=== PATIENT | male | born 1960 | race Caucasian/White ===

== ENCOUNTER → 2024-06-01 | Outpatient (CLI) | payer OTHER ==
[~2024-06-01] MED LIST: ALBU2.5V5 INH; ALBU90OI61 INH; ANORO ELLIPTA1 EAC1; ASPI81CH PO; ATOR40TA PO; Bactrim Ds Tab1 EACH PO; CLOP75 PO; Crutch1 EACH MISC; DOXY100 PO; Desyrel50 MG PO; EUTHYROX75 MC1; GABA100; LITH300C PO; METO25ER PO; MINOCYCLINE HC100 M2 PO; NITR.4SL SL; NITR.6SL SL; Naprosyn500 MG PO; Neurontin 100100 MG PO; Norco 5-325 Ta1 EACH PO; PANT40 PO; PARO20 PO; PARO25 PO; PAXIL40 M1; PRED20 PO; Permethrin60 GM TP; SULTRISS PO; TRAZ100 PO; VITAMIN D-32000 UNIT PO
[2024-06-01 11:03] LABS: International Normalized Ratio 1.06; Prothrombin Time Results 11.3 Sec (9.7-11.5)
== END ==
LOC: LAB 10:39 → LAB SHORT 10:39
PROVIDERS: Internal Medicine Hematology & Oncology
DX: D49.0 Neoplasm of unspecified behavior of digestive system (principal)
CPT/HCPCS: 85610; 85730

== ENCOUNTER 2024-08-08 19:31 | Inpatient (IN) | payer OTHER ==
[~2024-08-08] VITALS: Ht 170.2 cm; Wt 66.1 kg
[~2024-08-08 19:31] MED LIST changes: +ALBU90OI INH; -ALBU90OI61 INH; -Desyrel50 MG PO; +NS 1,000 ML IV SCH
[2024-08-08 20:15] LABS: Hematocrit 30.4 % (37.0-53.0); Mean Corpuscular HGB 23.4 pg (26.0-34.0); Mean Corpuscular HGB Conc 29.6 g/dL (31.5-36.5); Mean Corpuscular Volume 79 fL (80-100); Mean Platelet Volume 10.3 fL (9.1-12.4); Platelet Count 446 K/mm3 (150-400); RDW Coefficient Variation 18.7 % (11.7-14.2); RDW Standard Deviation 52.3 fL (35.1-46.3); Red Blood Cell Count 3.84 M/mm3 (4.30-5.90); White Blood Cell Count 33.41 K/mm3 (4.00-11.30)
[2024-08-08 20:43] LABS: Albumin, Blood 1.9 g/dL (3.4-5.0); Albumin/Globulin Ratio 0.4 (0.8-1.8); Bilirubin, Total 0.7 mg/dL (0.1-1.0); Bun/Creatinine Ratio 23.2 (12.0-20.0); Calcium, Blood 10.5 mg/dL (8.5-10.1); Creatinine, Blood 0.82 mg/dL (0.60-1.20); Globulin, Blood 5.1 g/dL (2.2-4.0); Potassium, Blood 4.5 mmol/L (3.5-5.5)
[2024-08-08] MEDS ORDERED: NS 1,000 ML IV SCH (21:00)
[2024-08-08 21:13] LABS: BAND PERCENT MAN 3 % (0-8); BASOPHILS PERCENT MAN 0 % (0-2); EOSINOPHILS PERCENT MAN 0 % (0-6); LYMPHOCYTES ABSOLUTE MAN 0.33 K/mm3 (0.84-5.20); LYMPHOCYTES PERCENT MAN 1 % (21-46); MONOCYTES ABSOLUTE MAN 1.67 K/mm3 (0.16-1.47); MONOCYTES PERCENT MAN 5 % (4-13); MYELOCYTE ABSOLUTE MAN 0.33 K/mm3 (0.00-0.00); MYELOCYTE PERCENT MAN 1 % (0-0); NEUTROPHILS ABSOLUTE MAN 31.07 K/mm3 (1.96-9.15); SEG NEUTROPHILS PERCENT MAN 90 % (41-73); TOTAL CELLS COUNTED 100
[2024-08-08 22:30] LABS: Source, Urine Straight Cath
[2024-08-08 22:38] LABS: Bilirubin, Urine Neg (Neg); Blood, Urine Neg (Neg); Glucose Qualitative, Urine Neg (Neg); Ketones, Urine Neg (Neg); Leukocyte Esterase, Urine Neg (Neg); Nitrite, Urine Neg (Neg); Protein, Urine 2+ (Neg); Urobilinogen, Urine 1+ (Normal)
[2024-08-08 22:44] LABS: Appearance, Urine Clear (Clear); Color, Urine Yellow (P-Yellow)
[2024-08-08 22:46] LABS: Amorphous Light (0-Heavy); Bacteria Few /hpf; Granular Casts 0-2 /lpf (0); Red Blood Cells, Urine Not Seen /hpf (0-2); Squamous Epithelial Cells Few /hpf (Few); White Blood Cells, Urine 0-2 /hpf (0-5)
[2024-08-08] MEDS ORDERED: Acetaminophen 650 MG Supp PR PRN (23:10)
[2024-08-08] MEDS ORDERED: Acetaminophen 325 MG TABLET PO PRN (23:10)
[2024-08-09] VITALS (8 sets, daily range): BP systolic 83–101; BP diastolic 60–76
[2024-08-09] MEDS ORDERED: CefTRIAXone Sodium 2,000 MG in NS 100 ML IV SCH (00:37)
[2024-08-09 03:48] LABS: Hematocrit 27.5 % (37.0-53.0); Hemoglobin 8.3 g/dL (13.5-17.5); Mean Corpuscular HGB 23.6 pg (26.0-34.0); Mean Corpuscular HGB Conc 30.2 g/dL (31.5-36.5); Mean Corpuscular Volume 78 fL (80-100); Mean Platelet Volume 10.1 fL (9.1-12.4); Platelet Count 420 K/mm3 (150-400); RDW Coefficient Variation 18.9 % (11.7-14.2); RDW Standard Deviation 52.7 fL (35.1-46.3); Red Blood Cell Count 3.52 M/mm3 (4.30-5.90); White Blood Cell Count 27.74 K/mm3 (4.00-11.30)
--- NOTE | 2024-08-09 03:56 | NUR ---
SHIFT SUMMARY PT ARRIVED TO UNIT A LITTLE AFTER MIDNIGHT. PT COMPLETELY SOILED, SOCKS WERE STUCK TO PTs FEET. FEET WERE COMPLETELY BLACK AND HAD TO SOAK IN WATER AND SCRUB DIRT OFF. SMALL WOUNDS FOUND ON BUTTOCKS, SEE CHART FOR PICTURES. PT ARRIVED ALERT HOWEVER STRUGGLED TO ANSWER QUESTIONS REGARDING TIME AND SITUATION. PTs SPEECH MUMBLED AND HARD TO UNDERSTAND. HOWEVER PT COOPERATIVE. BPs LOW SBP 90s WITH MAP >65. FLUIDS RUNNING @ 125/HR. AFEBRILE. ON TELE NSR. ON RA >97%. PT C/O ABDOMINAL DISCOMFORT HOWEVER NOT IN PAIN. PTs ABDOMEN DISTENDED WITH HYPOACTIVE BOWEL SOUNDS. PT REPORTS HAVING A BM 08/07/24. BLX TAKEN PER PHLEBOTOMY. PT NPO AT THIS TIME FOR PROCEDURES IN AM. IV ABX GIVEN PER EMAR. NO FURTHER QUESTIONS OR CONCERNS AT THIS TIME. CALL CUETO WITHIN REACH WITH BED ALARM SET. WILL CONTINUE WITH PLAN OF CARE.
[2024-08-09 04:00] LABS: International Normalized Ratio 1.19; Prothrombin Time Results 12.6 Sec (9.7-11.5)
[2024-08-09 04:13] LABS: Albumin, Blood 1.7 g/dL (3.4-5.0); Albumin/Globulin Ratio 0.4 (0.8-1.8); Bilirubin, Total 0.6 mg/dL (0.1-1.0); Bun/Creatinine Ratio 22.6 (12.0-20.0); Calcium, Blood 10.1 mg/dL (8.5-10.1); Creatinine, Blood 0.75 mg/dL (0.60-1.20); Globulin, Blood 4.5 g/dL (2.2-4.0); Magnesium, Blood 1.9 mg/dL (1.6-2.4); Percent Saturation 12.5 % (20.0-50.0); Potassium, Blood 4.1 mmol/L (3.5-5.5); Total Protein, Blood 6.2 g/dL (6.4-8.2)
[2024-08-09 04:19] LABS: BAND PERCENT MAN 5 % (0-8); BASOPHILS PERCENT MAN 0 % (0-2); EOSINOPHILS PERCENT MAN 0 % (0-6); LYMPHOCYTES ABSOLUTE MAN 0.83 K/mm3 (0.84-5.20); LYMPHOCYTES PERCENT MAN 3 % (21-46); MONOCYTES ABSOLUTE MAN 0.83 K/mm3 (0.16-1.47); MONOCYTES PERCENT MAN 3 % (4-13); NEUTROPHILS ABSOLUTE MAN 26.07 K/mm3 (1.96-9.15); SEG NEUTROPHILS PERCENT MAN 89 % (41-73); TOTAL CELLS COUNTED 100
[2024-08-09 09:03] LABS: U Amphetamine Screen DETECTED; U Barbituate Screen Not Detected; U Benzodiazapine Screen Not Detected; U Cocaine Screen Not Detected; U Methadone Screen Not Detected; U Methamphetamine Screen DETECTED; U Opiates Screen Not Detected; U Phencyclidine Screen Not Detected
[2024-08-09 09:04] LABS: U Buprenorphine Screen Not Detected; U Cannabinoids Screen DETECTED; U Oxycodone Screen Not Detected
--- NOTE | 2024-08-09 09:22 | NUR ---
am note this rn assumed care at 0700. vital signs stable. tele sinus rhythm/sinus tach 100. patient is alert and oriented to person, place, self, but was not with date/time or event. patient denies pain, chest pain/pressure or shortness of breath. this rn had md koenig assess patient stage 1 pressure sore on bottom and pictures in the chart. see shift assessment for further detials. Md Koenig in room at 0745 this am and this rn was at bedside while rounded. Plan for paracentesis today at 1330 and patient remains npo until after this.
--- NOTE | 2024-08-09 11:06 | NUR ---
low blood sugar this rn called md koenig to notify of blood sugar of 60, orders placed for d50. see orders.
[2024-08-09] MEDS ORDERED: Dextrose 50% 50 ML Syringe IV ONE (12:00)
[2024-08-09] MEDS ORDERED: ZINC OXIDE/PETROLATUM, YELLOW 1 APPLIC/71 GM PASTE TOP PRN (13:35)
--- NOTE | 2024-08-09 14:34 | NUR ---
update wound care done on bottom. mepilex in place on coccyx
--- NOTE | 2024-08-09 14:37 | NUR ---
sDenioDeni phone number [phone]
[2024-08-09] MEDS ORDERED: Albuterol 2.5 MG/3 ML VIAL INH PRN (17:00)
--- NOTE | 2024-08-09 17:04 | NUR ---
shift summary patient vitals remain stable. no acute changes this shift. patient calls out for help and needs reminders to use call light. patient had head ct and chest ct today. plan for biopsy of pancreas tomorrow and to be npo after breakfast. patient life partner in room visiting with patient at this time.
[2024-08-09] MEDS ORDERED: TraZODone HCl 100 MG Tab PO PRN (17:05)
[2024-08-09] MEDS ORDERED: Albuterol HFA200 ACT/6.7 GM INH INH PRN (17:10)
--- NOTE | 2024-08-09 19:17 | NUR ---
ATTEMPTED PALLIATIVE CARE VISIT: ATTEMPTED TO VISIT WITH PT. HE WOULD NOT STAY AWAKE FOR CONVERSATION. PT DID TELL ME HE WAS HAVING LOTS OF PAIN AT HOME BUT HE DID NOT HAVE ANY PRESCRIPTION FOR PAIN MANAGEMENT. WAS UNABLE TO CAPTURE ANY OTHER INFORMATION.
[2024-08-09] MEDS ORDERED: NS 1,000 ML IV ONE (20:30)
[2024-08-10] VITALS (7 sets, daily range): BP systolic 87–109; BP diastolic 58–77
[2024-08-10 04:17] LABS: BASOPHILS ABSOLUTE AUTO 0.03 K/mm3 (0.00-0.23); BASOPHILS PERCENT AUTO 0 % (0-2); EOSINOPHILS ABSOLUTE AUTO 0.05 K/mm3 (0.00-0.68); EOSINOPHILS PERCENT AUTO 0 % (0-6); Hemoglobin 7.4 g/dL (13.5-17.5); IMMATURE GRAN ABSOLUTE AUTO 0.42 K/mm3 (0.00-0.10); IMMATURE GRAN PERCENT AUTO 2 % (0-1); LYMPHOCYTES ABSOLUTE AUTO 0.48 K/mm3 (0.84-5.20); LYMPHOCYTES PERCENT AUTO 2 % (21-46); MONOCYTES ABSOLUTE AUTO 1.47 K/mm3 (0.16-1.47); MONOCYTES PERCENT AUTO 6 % (4-13); Mean Corpuscular HGB 23.3 pg (26.0-34.0); Mean Corpuscular HGB Conc 28.5 g/dL (31.5-36.5); Mean Corpuscular Volume 82 fL (80-100); NEUTROPHILS ABSOLUTE AUTO 24.33 K/mm3 (1.96-9.15); NEUTROPHILS PERCENT AUTO 91 % (41-73); Platelet Count 481 K/mm3 (150-400); RDW Coefficient Variation 18.8 % (11.7-14.2); RDW Standard Deviation 55.8 fL (35.1-46.3); Red Blood Cell Count 3.17 M/mm3 (4.30-5.90); White Blood Cell Count 26.78 K/mm3 (4.00-11.30)
[2024-08-10 04:44] LABS: Albumin, Blood 1.4 g/dL (3.4-5.0); Albumin/Globulin Ratio 0.3 (0.8-1.8); Bilirubin, Total 0.4 mg/dL (0.1-1.0); Bun/Creatinine Ratio 19.9 (12.0-20.0); Calcium, Blood 9.3 mg/dL (8.5-10.1); Creatinine, Blood 0.71 mg/dL (0.60-1.20); Globulin, Blood 4.2 g/dL (2.2-4.0); Potassium, Blood 3.8 mmol/L (3.5-5.5); Total Protein, Blood 5.6 g/dL (6.4-8.2)
--- NOTE | 2024-08-10 05:14 | NUR ---
SHIFT SUMMARY NO ACUTE CHANGES OVERNIGHT. PT CONTINUES TO BE ALTERED HOWEVER COOPERATIVE. PTs BPs CONTINUE TO BE SOFT. SBPs 80s-90s HOWEVER MAP >65. ONE ADDITIONAL LITER ORDERED TO RUN @ 100/HR PER DR. OZUNA. PT HAD NO C/O PAIN OR DISCOMFORT THROUGHOUT NIGHT. URINATING ADEQUATELY WITH URINAL. ON TELE NSR 80s-90s. NPO @ 0800 FOR PROCEDURE. NO FURTHER QUESTIONS OR CONCERNS AT THIS TIME. BED ALARM REMAINS SET WITH CALL CUETO WITHIN REACH. WILL CONTINUE WITH PLAN OF CARE.
[2024-08-10] MEDS ORDERED: Pantoprazole Sodium 40 MG Tab PO SCH (06:00)
[2024-08-10] MEDS ORDERED: PARoxetine HCl 20 MG Tab PO SCH (09:00)
[2024-08-10] MEDS ORDERED: NS 1,000 ML IV SCH (09:00)
[2024-08-10] MEDS ORDERED: Lactobacil 2-S.Thermo-Bifido 1 1 Cap PO SCH (09:00)
[2024-08-10] MEDS ORDERED: Ondansetron 4 MG SoluTab MM PRN (15:25)
--- NOTE | 2024-08-10 17:09 | NUR ---
SUMMARY LIVER/PANC BX COMPLETED TODAY. PT DENIES PAIN IN ABD. ABLE TO EAT A FEW BITES OF PUDDING BEFORE FEELING NAUSEATED. MD NOTIFIED, MEDICATED PER EMAR. PT RESTING WITH EYES CLOSED. PT HAS BEEN IMPULSIVE ATTEMPTING TO GET OUT OF BED UNSAFELY. DOES NOT CALL APPROPRIATELY. PT STATES THAT HE IS LEAVING HOWEVER STAFF HAS BEEN ABLE TO REASSURE PT OF CARE PLAN AND NEED FOR CONTINUED CLOSE OBSERVATION. LIFE PARTNER SURYA UPDATED ON CARE PLAN WELL. PT REFUSED PT/OT. WEAKNESS NOTED. ABLE TO STAND PIVOT TO BEDSIDE COMMODE. WITH 1 ASSIST. IV FLUIDS CONTINUED. ORIENTED X2-3 WITH INTERMITTENT CONFUSION REQUIRE FREQUENT REDIRECTION. MEPILEX ON COCCYX REPLACED AND PT HIPS SUPPORTED WITH PILLOW
--- NOTE | 2024-08-10 17:25 | NUR ---
PALLIATIVE CARE VISIT: ATTEMPTED TO VISIT PT TODAY. HE WAS SLEEPING. PT CONTINUES TO BE CONFUSED PER RN NOTES. ATTEMPTED TO CALL LIFE PARTNER SURYA AT [phone] AND HAD TO LEAVE A MESSAGE REQUESTING RETURN CALL.
[2024-08-11 03:16] VITALS: BP 98/69
--- NOTE | 2024-08-11 04:12 | NUR ---
MD NOTIFIED OF HGB LEVEL, LAST CHECKED 24 HRS AGO, TRENDING DOWN SINCE ADMISSION. MD OKAYED ORDER FOR REPEAT HGB/LAB VALUES. NO NEW EMAR ORDERS AT THIS TIME.
[2024-08-11 04:26] LABS: BASOPHILS ABSOLUTE AUTO 0.04 K/mm3 (0.00-0.23); BASOPHILS PERCENT AUTO 0 % (0-2); EOSINOPHILS ABSOLUTE AUTO 0.02 K/mm3 (0.00-0.68); EOSINOPHILS PERCENT AUTO 0 % (0-6); Hematocrit 27.2 % (37.0-53.0); Hemoglobin 8.1 g/dL (13.5-17.5); IMMATURE GRAN ABSOLUTE AUTO 0.39 K/mm3 (0.00-0.10); IMMATURE GRAN PERCENT AUTO 2 % (0-1); LYMPHOCYTES ABSOLUTE AUTO 0.37 K/mm3 (0.84-5.20); LYMPHOCYTES PERCENT AUTO 1 % (21-46); MONOCYTES ABSOLUTE AUTO 1.17 K/mm3 (0.16-1.47); MONOCYTES PERCENT AUTO 4 % (4-13); Mean Corpuscular HGB 23.5 pg (26.0-34.0); Mean Corpuscular HGB Conc 29.8 g/dL (31.5-36.5); Mean Corpuscular Volume 79 fL (80-100); Mean Platelet Volume 9.9 fL (9.1-12.4); NEUTROPHILS ABSOLUTE AUTO 24.61 K/mm3 (1.96-9.15); NEUTROPHILS PERCENT AUTO 92 % (41-73); Platelet Count 473 K/mm3 (150-400); RDW Coefficient Variation 19.2 % (11.7-14.2); RDW Standard Deviation 53.5 fL (35.1-46.3); Red Blood Cell Count 3.44 M/mm3 (4.30-5.90)
--- NOTE | 2024-08-11 05:28 | NUR ---
Shift Summary: AOx3, pt is responsive to his care. No acute changes throughout shift. Pt impulsive, bed alarm on for safety. Needs assistance when urinating, uses the urinal, one person assist. Pt is redirectable, still has mumbled speech when communicating, but communicates his needs. Blood pressures still soft w/ systolic <100 & diastolic <70s, this is base line for patient. On Tele, NSR HRS >90s. Pt reports pain level 5/10 around midnight around abd, , denied pain medications, pain was tolerable, non tender to touch. Abdomen distended, no change, see shift assessment, awaiting BX results. Denies CP, SOB and on room air. Pt redirected on the use of the call light, bed alarm is activated and bed at lowest position.
[2024-08-11 06:51] LABS: Albumin, Blood 1.5 g/dL (3.4-5.0); Albumin/Globulin Ratio 0.4 (0.8-1.8); Bilirubin, Total 0.5 mg/dL (0.1-1.0); Bun/Creatinine Ratio 22.9 (12.0-20.0); Calcium, Blood 9.5 mg/dL (8.5-10.1); Creatinine, Blood 0.53 mg/dL (0.60-1.20); Globulin, Blood 4.2 g/dL (2.2-4.0); Potassium, Blood 4.1 mmol/L (3.5-5.5); Total Protein, Blood 5.7 g/dL (6.4-8.2)
[2024-08-11 08:00] VITALS: BP 108/82
[2024-08-11] MEDS ORDERED: RISPERIDONE110 PO (08:18)
[2024-08-11] MEDS ORDERED: BUSPIRONE HCL10 M6 PO (08:18)
[2024-08-11] MEDS ORDERED: PAXIL40 M1 PO (08:19)
[2024-08-11] MEDS ORDERED: RisperiDONE 1 MG Tab PO SCH (10:00)
[2024-08-11] MEDS ORDERED: Ipratropium/Albuterol SulF 2.5-0.5MG/3 ML Amp INH SCH (10:00)
[2024-08-11] MEDS ORDERED: BusPIRone HCl 10 MG Tab PO SCH (10:00)
[2024-08-11] MEDS ORDERED: Lithium Carbonate 300 MG Cap PO SCH (10:00)
--- NOTE | 2024-08-11 11:21 | NUR ---
TRANSFER NOTE PATIENT A/OX3, IMPULSIVE AT TIMES. ABLE TO MAKE NEEDS KNOWN. PARTICIPATED IN PT AND OT THIS AM. ABDOMEN DISTENDED WITH PALPABLE MASSES. RESTARTED PSYCH MEDICATIONS PER JUN. SURYA, PATIENT'S LIFE PARTNER, UP[DATED ON ROOM CHANGE AND STATES WILL COME TO VISIT THIS AFTERNNON AROUND 1300. REPORT GIVEN TO GLENNA ON MEDICAL FLOOR. PATIENT TRANSFERRED TO ROOM 345. NO OTHER CONCERNS AT THIS TIME.
--- NOTE | 2024-08-11 13:09 | NUR ---
TRANSFER SUMMARY PT TRASNFERRED FROM PCU TO MEDICAL FLOOR @ APPROX 1106. PT SLID FROM PCU BED TO MED FLOOR BED USING SLIDE SHEET AND 4 PERSON ASSIT - PT TOLERATED WELL. PT REPORTS PAIN WITH REPOSITIONING. PUREWICK APPLIED DUE TO PAIN AND WEAKNESS. TYLENOL ADMINISTERED - WILL MONITOR EFFECTIVENESS AND REPORT TO PROIVDER IF DOES NOT MANAGE PT PAIN AT COMFORTABLE LEVEL. TELE DC'D PRIOR TO TRANSFER. IV SALINE LOCKED. ATTENDS IN PLACE. BED ALARM ON. CALL LIGHT WITHIN REACH AND BED IN LOWEST POSITION.
[2024-08-11] MEDS ORDERED: OxyCODONE HCL 5 MG TAB PO PRN (13:40)
[2024-08-11 17:31] VITALS: BP 94/69
--- NOTE | 2024-08-11 17:40 | NUR ---
SHIFT SUMMARY NO ACUTE CHANGES SINCE TRANSFER. MEDICATIONS ADMINISTERED PER EMAR FOR PAIN REPORTED BY PT "ALL OVER". PARACENTESIS CANCELLED DUE TO NOT HAVING ENOUGH FLUID IN THE ABD. FAMILY STOPPED BY BUT REQUESTED WE WAIT UNTIL TOMORROW FOR DISCUSSION REGARDING PT DIAGNOSIS SO LIFE PARTNER SURYA CAN BRING SOME FAMILY SUPPORT SHE KNOWS IT IS "NOT GOOD NEWS". PT DRINKING WATER AND TAKING MEDICATIONS WITHOUT DIFFICULTY, REFUSED LUNCH. PUREWICK REMAINS IN PLACE. PT RESTING IN BED WITH BED IN LOWEST POSITION AND CALL LIGHT WITHIN REACH, BED ALARM ON DUE TO IMPULSIVENESS.
[2024-08-11 19:38] VITALS: BP 97/71
[2024-08-11] MEDS ORDERED: NS 250 ML IV PRN (19:45)
[2024-08-12 03:07] VITALS: BP 102/77
--- NOTE | 2024-08-12 03:59 | NUR ---
SHIFT SUMMARY ADMITTED FOR TOXIC METABOLIC ENCEPHALOPATHY. FULL CODE. IV ANTIB RX ARE SCHEDULED. REGULAR DIET. ON RA. PUREWICK IN PLACE. HX OF GLF'S, HE IS VERY UNSTEADY ON HIS FEET. NEW DIAGNOSIS OF LIVER CANCER W/METS. ASCITES NOTED. HE WAS VERY SOMNOLENT THIS SHIFT, REFUSING TO STAY AWAKE FOR MORE THAN A FEW MOMENTS AT A TIME.
[2024-08-12 06:59] LABS: BASOPHILS ABSOLUTE AUTO 0.03 K/mm3 (0.00-0.23); BASOPHILS PERCENT AUTO 0 % (0-2); EOSINOPHILS ABSOLUTE AUTO 0.01 K/mm3 (0.00-0.68); EOSINOPHILS PERCENT AUTO 0 % (0-6); Hematocrit 27.6 % (37.0-53.0); IMMATURE GRAN ABSOLUTE AUTO 0.23 K/mm3 (0.00-0.10); IMMATURE GRAN PERCENT AUTO 1 % (0-1); LYMPHOCYTES ABSOLUTE AUTO 0.24 K/mm3 (0.84-5.20); LYMPHOCYTES PERCENT AUTO 1 % (21-46); MONOCYTES ABSOLUTE AUTO 0.91 K/mm3 (0.16-1.47); MONOCYTES PERCENT AUTO 4 % (4-13); Mean Corpuscular HGB 23.1 pg (26.0-34.0); Mean Corpuscular Volume 80 fL (80-100); Mean Platelet Volume 10.5 fL (9.1-12.4); NEUTROPHILS ABSOLUTE AUTO 22.06 K/mm3 (1.96-9.15); NEUTROPHILS PERCENT AUTO 94 % (41-73); Platelet Count 266 K/mm3 (150-400); RDW Coefficient Variation 19.7 % (11.7-14.2); RDW Standard Deviation 55.6 fL (35.1-46.3); Red Blood Cell Count 3.46 M/mm3 (4.30-5.90); White Blood Cell Count 23.48 K/mm3 (4.00-11.30)
[2024-08-12 07:19] LABS: Albumin, Blood 1.4 g/dL (3.4-5.0); Albumin/Globulin Ratio 0.3 (0.8-1.8); Bilirubin, Total 0.5 mg/dL (0.1-1.0); Bun/Creatinine Ratio 22.4 (12.0-20.0); Calcium, Blood 10.1 mg/dL (8.5-10.1); Creatinine, Blood 0.71 mg/dL (0.60-1.20); Globulin, Blood 4.4 g/dL (2.2-4.0); Potassium, Blood 4.1 mmol/L (3.5-5.5); Total Protein, Blood 5.8 g/dL (6.4-8.2)
[2024-08-12 07:20] VITALS: BP 117/89
--- NOTE | 2024-08-12 13:51 | NUR ---
Spiritual Care Attempted. At the request of a nurse on the floor I visited the Pt. The Pt. displayed evidence of being distant and uninterest in a visit of any kind. The Pt. did not verbalize anything in response to my introduction and invitation to dialogue. Prayed for Pt. on my own away from his presence as the Pt. did not seem to welcome it in his presence. Will remain available to Pt.
[2024-08-12] MEDS ORDERED: Scopolamine Hydrobromide Patch TOP PRN (16:05)
[2024-08-12] MEDS ORDERED: LORazepam 1 MG Tab PO PRN (16:05)
[2024-08-12] MEDS ORDERED: LORazepam 2 MG/ML 1ML Injection IV PRN (16:05)
[2024-08-12] MEDS ORDERED: Morphine Sulfate 20 MG/1ML 1 ML Oral Syringe SL PRN (16:05)
[2024-08-12] MEDS ORDERED: Ondansetron HCl 2 MG / ML 2ML Vial IV PRN (16:05)
[2024-08-12] MEDS ORDERED: Acetaminophen 325 MG TABLET PO PRN (16:10)
[2024-08-12] MEDS ORDERED: Atropine Sulfate 1% Opth Soln 2ML BTL SL PRN (16:10)
--- NOTE | 2024-08-12 16:31 | NUR ---
The patient is imminent, diagnosed with late stage metastatic cancer. No family found, pt's long-term partner Aruna unsuccessfully attempted to reach pt's estranged child and pt's estranged brother. Aruna is the appropriate decision-maker as good brown efforts made to locate family to no avail. Aruna spoke with physician, and understands the patient's condition is terminal and he is imminent. She agrees that comfort care is appropriate at this time. Physician placing orders. Pt not arousable. Will continue to offer support to pt's s/o Aruna.
--- NOTE | 2024-08-12 16:53 | NUR ---
SHIFT SUMMARY PT NOW ON COMFORT CARE AND DNR STATUS. FAMILY AWARE. HOLDEN ARRIVED FOR CONSULT AND BELEIVES TO BE IMMINENT. PT REFUSED ALL MEALS TODAY, TAKING ONLY SIPS OF FLUIDS. PT ALSO REFUSED TO EAT FAVORITE CANDY BAR BROUGHT IN BY LIFE PARTNER. MINIMAL URINE OUTPUT WITH PUREWICK, APPROX 400 ML THIS SHIFT. PT CURRENTLY RESTING PEACEFULLY IN HOSPITAL BED WITH BED IN LOWEST POSITON, BED ALARM ON, AND CALL LIGHT WITHIN REACH. PT DOES NOT USE CALL LIGHT APPROPRIATELY.
[2024-08-13] MEDS ORDERED: Ipratropium/Albuterol SulF 2.5-0.5MG/3 ML Amp INH SCH (00:40)
--- NOTE | 2024-08-13 04:32 | NUR ---
SHIFT SUMMARY ADMITTED FOR TOXIC METABOLIC ENCEPHALOPATHY. DNR CODE. NOW ON COMFORT CARE. PAIN AND ANXIETY MEDICATION GIVEN THIS SHIFT, TO GOOD EFFECT. HE SEEMS MORE COMFORTABLE TO ME THIS SHIFT. PUREWICK IN PLACE. HE SPEAKS ONE WORD ANSWERS HERE OR THERE, BUT IS UNRESPONSIVE FOR THE MOST PART. HE SLEPT THROUGH MOST OF THIS SHIFT. FAMILY WAS AT BEDSIDE THROUGH HALF OF SHIFT.
[2024-08-13] MEDS ORDERED: Ipratropium/Albuterol SulF 2.5-0.5MG/3 ML Amp INH PRN (08:50)
[2024-08-13] MEDS ORDERED: Thiamine HCl 100 MG Tab PO SCH (09:00)
[2024-08-13] MEDS ORDERED: Multivitamins 1 Tab PO SCH (09:00)
--- NOTE | 2024-08-13 10:52 | NUR ---
Pt. is awake in bed but is mostly non responsive. Prayed for the Pt. WIll remaian available to Pt. and family.
--- NOTE | 2024-08-13 18:06 | NUR ---
SHIFT SUMMARY PT NOT ALERT OR RESPONSIVE TO STIMULI, AIR HUNGER AND SECREITIONS MEDICATED PER EMAR. Q2H REPOSITIONING AND ORAL CARE COMPLETED. MINIMAL OUTPUT THIS SHIFT AND NO PO INTAKE. CALL LIGHT WITHIN REACH.
--- NOTE | 2024-08-14 04:04 | NUR ---
SHIFT SUMMARY ADMITTED FOR TOXIC METABOLIC ENCEPHALOPATHY. DNR CODE. NOW COMFORT CARE. ROXANOL AND SCOPALAMINE PATCH ADMINISTERED THIS SHIFT. SEE EMAR. PT IS SLEEPING COMFORTABLY. SECRETIONS NOTED AT BEGINNING OF SHIFT, NOW SLOWLY IMPROVING. PT REPOSITIONED FOR COMFORT. PUREWICK IN PLACE. PT IS NOT RESPONSIVE TO ME. NO S/SX OF DISCOMFORT. NO S/SX OF ANXIETY THIS SHIFT.
--- NOTE | 2024-08-14 16:27 | NUR ---
COMFORT CARE SUPPORTIVE VISIT OBTUNDED. PPPX4. WEAK PEDAL PULSES, BILAT FEET COOL TO THE TOUCH, BLE EDEMA. CACHECTIC, WASHBOARD RIBS. PULSING SEEN AND PALPATED AT BASE OF STERNUM. RESPIRATIONS LABORED WITH 7-15 SECOND PAUSES OF APNEA. PSYCHOTHERAPIST AND STUDENT NA'S TO PROVIDE ORAL CARE AND REPOSITIONING. COMFORT QUILT PROVIDED. THERAPUTIC LISTENING PROVIDED TO LIFE LONG FRIEND. HE PROVIDED A SHORT RECAP OF THEIR FRIENDSHIP/AMARAL. HE EXPRESSED GRATITUDE FOR THE CARE HIS 'BROTHER' HAS BEEN RECEIVING. UPDATED HOME LIST PROVIDED, NO DECISION AT THIS TIME. PC TO REMAIN AVAILABLE NEEDED.
--- NOTE | 2024-08-14 18:40 | NUR ---
SHIFT SUMMARY PT UNRESPONSIVE W/ APNEA T/O SHIFT. PT MEDICATED PER EMAR. FAMILY VISITED AND SPOKE W/ PALLIATIVE CARE. CALL LIGHT IN REACH.
--- NOTE | 2024-08-15 04:54 | NUR ---
SHIFT SUMMARY - PT IS ON COMFORT CARE. PT HAS APNIC EPISODES, HAS BEEN NON RESPONSIVE THROUGHOUT THE NIGHT. MEDICATED FOR COMFORT FOR AIR HUNGER/PAIN. SURYA, SIGNIFICANT OTHER WAS IN DURING THE NIGHT. CALL LIGHT WITHIN REACH. BED IN LOW POSITION.
--- NOTE | 2024-08-15 16:25 | NUR ---
PATIENT PASSED: PATIENT PASSED THIS SHIFT AT 1110. HOSPITALIST NOTIFIED; NURSING ENGINE COWLING INSTALLER NOTIFIED. FAMILY/SO CALLED; FAMILY VISITED THIS SHIFT; AWAITING NOTIFICATION OF FAMILY'S WISHES FOR DISPOSITION OF BODY.
--- NOTE | 2024-08-15 18:09 | NUR ---
PATIENT DISCHARGE: PATIENT DISCHARGED TO [facility] THIS SHIFT. [facility] PICKED UP PATIENT AT 1800. PATIENT DEPARTED [facility]IA GURNEY.
== END 2024-08-15 11:10 | DRG 840 ==
LOC: ER 19:31 → PCU 23:08 → ERHOLD 23:08 → MEDS 23:08 → PCU 08-09 00:28 → MEDS 08-11 11:01
PROVIDERS: Student in an Organized Health Care Education/Training Program; ADMIT Student in an Organized Health Care Education/Training Program
PROC: 3E03329 Introduction of Other Anti-infective into Peripheral Vein, Percutaneous Approach (ICD-10-PCS; principal; 2024-08-09)
PROC: 0FB23ZX Excision of Left Lobe Liver, Percutaneous Approach, Diagnostic (ICD-10-PCS; 2024-08-10)
DX: C83.38 Diffuse large B-cell lymphoma, lymph nodes of multiple sites (principal); G92.8 Other toxic encephalopathy; E87.1 Hypo-osmolality and hyponatremia; R18.8 Other ascites; E87.20 Acidosis, unspecified; Z66 Do not resuscitate; C83.398 Diffuse large B-cell lymphoma of other extranodal and solid organ sites; F32.A Depression, unspecified; K21.9 Gastro-esophageal reflux disease without esophagitis; J44.9 Chronic obstructive pulmonary disease, unspecified; Z96.661 Presence of right artificial ankle joint; F17.210 Nicotine dependence, cigarettes, uncomplicated; Z51.5 Encounter for palliative care; B18.2 Chronic viral hepatitis C; L89.151 Pressure ulcer of sacral region, stage 1; R09.2 Respiratory arrest; F12.10 Cannabis abuse, uncomplicated; R91.1 Solitary pulmonary nodule; R29.6 Repeated falls; I25.10 Atherosclerotic heart disease of native coronary artery without angina pectoris; D63.8 Anemia in other chronic diseases classified elsewhere; I25.2 Old myocardial infarction; Z79.890 Hormone replacement therapy; Z79.51 Long term (current) use of inhaled steroids; Z79.899 Other long term (current) drug therapy; Z88.0 Allergy status to penicillin; Z98.890 Other specified postprocedural states
CPT/HCPCS: 36415; 47000; 70470; 71045; 71260; 74177; 76705; 77012; 80053; 80320; 81001; 82140; 82728; 82947; 83540; 83550; 83605; 83735; 84100; 84145; 84484; 85025; 85610; 87040; 88307; 88341; 88342; 88360; 93005; 93010; 94640; 94664; 94760; 94762; 96360-59; 97110; 97162; 97165; 97530; 99285-25; A9270; J0696; J2060; J7030; J7050; Q9967